=== PATIENT | female | born 1995 | race Caucasian/White ===

== ENCOUNTER → 2025-01-28 14:27 | Outpatient (CLI) | payer OTHER, SELFPAY ==
[2025-01-28 19:21] LABS: Free T4, Direct Thyroxine 0.98 ng/dL (0.78-2.19)
[2025-01-28 19:35] LABS: Thyroid Stimulating Hormone 1.05 uIU/mL (0.47-4.68)
[2025-01-28 20:01] LABS: HCG Quantitative /Beta subunit 81429 mIU/mL; Prolactin 67.9 ng/mL (3.0-18.6)
== END ==
PROVIDERS: Visit Provider Nurse Practitioner Adult Health
DX: Z34.90 Encounter for supervision of normal pregnancy, unspecified, unspecified trimester (principal); N97.0 Female infertility associated with anovulation; N91.4 Secondary oligomenorrhea
CPT/HCPCS: 84144; 84146; 84439; 84443; 84702

== ENCOUNTER → 2025-02-19 14:46 | Outpatient (CLI) | payer OTHER, SELFPAY ==
[2025-02-19 20:24] LABS: Urine N gonorrhoeae NOT DETECTED
[2025-02-19 20:26] LABS: Urine Chlamydia NOT DETECTED
== END ==
LOC: LAB 14:47
PROVIDERS: Visit Provider Obstetrics & Gynecology
DX: Z11.3 Encounter for screening for infections with a predominantly sexual mode of transmission (principal); Z3A.11 11 weeks gestation of pregnancy
CPT/HCPCS: 87491; 87591

== ENCOUNTER → 2025-03-25 16:38 | Outpatient (CLI) | payer OTHER, SELFPAY ==
[2025-03-25 17:01] LABS: Add Manual Diff / Slide Review NO; Basophils Absolute Auto 0 /uL (0-100); Basophils Percent Auto 0.4 % (0-2); Eosinophils Absolute Auto 100 /uL (0-450); Eosinophils Percent Auto 0.6 % (2-4); Hematocrit 38.6 % (36-46); Lymphocytes Absolute Auto 2500 /uL (1100-4500); Lymphocytes Percent Auto 18.8 % (25-40); Mean Corpuscular HGB Conc 33.6 % (30-36); Mean Corpuscular Hemoglobin 29.1 PG (26-34); Mean Corpuscular Volume 86.4 fL (80-100); Monocytes Absolute Auto 700 /uL (0-900); Monocytes Percent Auto 5.5 % (3-14); Neutrophils Absolute Auto 9800 /uL (1500-7000); Neutrophils Percent Auto 74.7 % (50-75); Platelet Count 236 X10^3/uL (150-400); Red Blood Cell Count 4.47 X10^6/uL (4.0-5.2); Red Cell Distribution Width 15.3 % (11.6-14.8); White Blood Cell Count 13.2 X10^3/uL (4.5-11.0)
[2025-03-25 17:24] LABS: Alanine Aminotransferase 12 IU/L (<35); Aspartate Aminotransferase 18 IU/L (14-36); BUN Creatinine Ratio 14.9 (6-22); Blood Urea Nitrogen 7 mg/dL (7-17); Estimated Glomerular Filt Rate > 60 mL/min (>60); Uric Acid 4.7 mg/dL (2.5-6.2)
[2025-03-25 17:29] LABS: Hemoglobin A1C% w Est Avg Glu 5.2 % (4.0-6.0)
== END ==
LOC: LAB 16:41
PROVIDERS: Referring Provider Obstetrics & Gynecology; Visit Provider Obstetrics & Gynecology
DX: O99.210 Obesity complicating pregnancy, unspecified trimester (principal); O09.291 Supervision of pregnancy with other poor reproductive or obstetric history, first trimester; Z3A.16 16 weeks gestation of pregnancy
CPT/HCPCS: 36415; 80055; 82105; 82565; 82677; 83036; 84450; 84460; 84520; 84550; 84702; 86336; 86787; 86803; 86850; 86900; 86901; 87389

== ENCOUNTER → 2025-05-08 11:16 | Outpatient (CLI) | payer OTHER, SELFPAY ==
--- NOTE | 2025-05-08 11:17 | DI.US.S_ITS ---
PROCEDURE: US OB >= 14 WEEKS FETUS INDICATIONS: ANATOMY OUTSIDE/PRIOR DATING DATA: Last menstrual period (LMP): November 30, 2024. LMP-based estimated date of delivery (MARK ANTHONY): September 06, 2025. The calculations are made using the LMP MARK ANTHONY of September 06, 2025. TECHNIQUE: Real-time scanning was performed of the fetus, with image documentation and biometric measurements. Endovaginal scanning: Not performed COMPARISON: [facility], , OB >= 14 WEEKS FETUS, 03/25/2025, 16:27. FINDINGS: General: A single living intrauterine gestation is present. Presentation: Breech. Placenta: Placental position is right posterior , without previa. Incidental note of mid placental venous ayala. Amniotic fluid index: 16.5 cm, normal range is 5-24 cm. Single deepest vertical pocket is 6.1 cm. heart rate: 150 beats per minute. Maternal cervical canal: 5.4 cm long. Normal lower limit is 2.5 cm. biometrics: Biparietal diameter: 5.4 cm, 22 weeks and 3 days Head circumference: 21.0 cm, 23 weeks and 1 day Abdominal circumference: 18.8 cm, 23 weeks and 4 days Femur length: 3.7 cm, 21 weeks and 6 days Clinically estimated gestational age: 22 weeks and 5 days Composite gestational age from present scan: 22 weeks and 5 days Estimated weight and percentile: 537 g which correlates with the 48th percentile for gestational age. Anatomic survey: Neuro: Ventricles are non-dilated at less than 10 mm. Cisterna magna is normal at 3-11 mm. Cerebellum is normal in size and morphology. Nuchal skin fold: Normal at less than 6 mm between 14-21 weeks gestational age. Face: Nose and lips, facial profile are normal. Spine: No evidence for spina bifida. Heart: 4-chambered heart is present, with normal ventricular outflow tracts. Diaphragm: Diaphragm is intact. Stomach: Left-sided stomach is present. Kidneys: No hydronephrosis. Mildly prominent right renal pelvis measuring 4.3 mm in AP dimension. Normal is less than 5 mm in 2nd trimester, less than 7 mm in 3rd trimester. Cord: 3-vessel cord has orthotopic insertion. Bladder: Normal in size. Extremities: All 4 extremities identified. IMPRESSION: Single living intrauterine gestation with estimated sonographic gestational age of approximately 22 weeks and 5 days. Estimated weight of approximately 537 g which correlates with the 48th percentile for gestational age. Expected interval growth has occurred. Unremarkable routine second-trimester anatomy screening survey. We strive to produce accurate, complete, and clear reports of imaging services. To assist us in improving patient care, this report was composed using standard report templates and voice recognition software. Therefore, it may contain abnormal punctuation, insertions and/or omissions. Occasional wrong-word or sound-alike substitutions may occur. Though we review the report and make efforts to correct it, we do recommend that the report be read carefully in proper context to recognize any text inaccuracies. Dictated by: Nico Pittman M.D. on 05/09/2025 at 9:24 Approved by: Nico Pittman M.D. on 05/09/2025 at 9:28
== END ==
PROVIDERS: Referring Provider Obstetrics & Gynecology; Visit Provider Obstetrics & Gynecology
DX: Z34.82 Encounter for supervision of other normal pregnancy, second trimester (principal); Z3A.22 22 weeks gestation of pregnancy
CPT/HCPCS: 76811

== ENCOUNTER → 2025-06-13 16:32 | Outpatient (CLI) | payer OTHER, SELFPAY ==
[2025-06-13 17:55] LABS: Hematocrit 37.1 % (36-46); Hemoglobin 12.7 g/dL (12.0-16.0)
[2025-06-13 18:24] LABS: GTT (PREG) 1 Hour PP 50gm Dose 173 mg/dL (76-139)
== END ==
PROVIDERS: Referring Provider Obstetrics & Gynecology; Visit Provider Obstetrics & Gynecology
DX: O26.899 Other specified pregnancy related conditions, unspecified trimester (principal); Z67.91 Unspecified blood type, Rh negative; Z13.1 Encounter for screening for diabetes mellitus; Z13.0 Encounter for screening for diseases of the blood and blood-forming organs and certain disorders involving the immune mechanism
CPT/HCPCS: 36415; 82950; 85014; 85018; 86850

== ENCOUNTER → 2025-07-24 09:12 | Outpatient (CLI) | payer OTHER, SELFPAY ==
[2025-07-24 15:09] LABS: Glucose Tol Interp,Gestational INTERPRETATION
[2025-07-24 19:13] LABS: Glucose Fasting Gestational 111 mg/dL (76-95)
[2025-07-24 19:13] LABS: Glucose 3 Hour Gest 121 mg/dL (76-140)
[2025-07-24 19:13] LABS: Glucose 2 Hour Gest 175 mg/dL (76-155)
[2025-07-24 19:13] LABS: Glucose 1 Hour Gest 201 mg/dL (76-180)
== END ==
PROVIDERS: Visit Provider Obstetrics & Gynecology
DX: O99.213 Obesity complicating pregnancy, third trimester (principal); R73.09 Other abnormal glucose
CPT/HCPCS: 82951; 82952

== ENCOUNTER → 2025-07-25 16:32 | Outpatient (CLI) | payer OTHER, SELFPAY ==
--- NOTE | 2025-07-25 16:33 | DI.US.S_ITS ---
PROCEDURE: US OB LIMITED INDICATIONS: growth US OUTSIDE/PRIOR DATING DATA: Working MARK ANTHONY is 09/06/2025 TECHNIQUE: Real-time scanning was performed of the fetus, with image documentation and biometric measurements. COMPARISON: [facility], OB >= 14 WEEKS FETUS, 05/08/2025, 12:12. FINDINGS: General: A single living intrauterine gestation is present. Presentation: Vertex. Placenta: Placental position is posterior , without previa. Amniotic fluid index: 26.1 cm, normal range is 5-24 cm. Single deepest vertical pocket is 7.2 cm. heart rate: 166 beats per minute. Maternal cervical canal: 2.8 cm long. Normal lower limit is 2.5 cm. biometrics: Biparietal diameter: 8.8 cm, 35 weeks and 5 days Head circumference: 33.6 cm , 38 weeks and 3 days Abdominal circumference: 33 cm, 37 weeks Femur length: 6.5 cm at 33 weeks and 4 days Clinically estimated gestational age: 33 weeks and 6 days Composite gestational age from present scan: 36 weeks and 1 day Estimated weight and percentile: 2861 g, 96% Other: Not applicable. IMPRESSION: Intrauterine gestation with cardiac motion in vertex presentation. Mild polyhydramnios at ARTUR of 26.1 cm. EFW at 96%, large for gestational age Dictated by: Tima Fernandez M.D. on 07/25/2025 at 19:48 Approved by: Tima Fernandez M.D. on 07/25/2025 at 19:49
== END ==
PROVIDERS: Referring Provider Obstetrics & Gynecology; Visit Provider Obstetrics & Gynecology
DX: O99.213 Obesity complicating pregnancy, third trimester (principal); O09.293 Supervision of pregnancy with other poor reproductive or obstetric history, third trimester; O40.3XX0 Polyhydramnios, third trimester, not applicable or unspecified; Z3A.33 33 weeks gestation of pregnancy
CPT/HCPCS: 76815

== ENCOUNTER → 2025-08-05 15:03 | Outpatient (CLI) | payer OTHER, SELFPAY ==
--- NOTE | 2025-08-05 17:39 | DIAB.GDA ---
Addendum entered by Leilani Lira 08/14/25 15:30: 08/14 phone call: patient needs to r/s our 08/15 visit due to scheduling NST. Also has OB visit same day. States she started 5u HS insulin last night. Overall FBG have been in the 90s. Started CGM, most numbers <140mg/dl. Likes CGM and plans to ask for Dexcom G7 rx. Also, advised her to keep BG log for OB review. If FBG >95mg/dl x2 days would recommend increase HS insulin by 2-3u. Currently 36-[address] f/u next week. Original Note: Initial Gestational Diabetes Assessment Name: Lesia Panchal Date: 08/05/25 Time: 3-4p Dx: Gestational Diabetes Provider: Morales MARK ANTHONY: 09/06/25 Weeks: 35 Lesia presents for initial GDM visit virtually using [facility]. No previous PMH of GDM. Endorses FH of DM with father and parternal grandfather. Recent US with LGA at 96%ile and ARTUR 26.1cm mild polyhydramnios. Given FBG, likely would benefit from insulin therapy HS. States she would like to avoid medications if possible, but would be open to this if necessary. This RD thinks it likely is necessary given >100mg/dl frequency. Lesia would like to work more on lifestyle over the next two days and see if FBG will come down. RD has messaged this to OB. Reports she does not eat pork or any seafood besides fish. Today she wants to know how Dm can impact her and baby, T2Dm risk, nutrition recs and BG goals. 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 Diet Recall: 745a: eggs, veg, cheese, turkey or chicken or veggie sausage +/- sourdough toast 10: beef stick, cheese, almonds and 1/2 apple 12p: school lunch, vegetarian, salad, beans, brown rice, fruit 430p: veggies, tofu, brown rice albanian noodles 930p: chicken or turkey or beans/cheese 80oz water tea Anthropometrics: Ht: 62 Wt: 233# 07/2025 Prepregnancy wt: 198# Physical Activity: 10-15 min walks after meal daily Self-Monitoring Blood Glucose: Checking FBG and 2-2.5 hours pc. Some postprandial readings may be lower than actual 2h due to late testing. FBG all elevated and 1/7 elevated breakfast, 2/5 elevated lunch, and 2/6 elevated dinner Date Pre Post Pre Post Pre Post notes 07/30 96 102 102 135 07/31 117 139 127 119 08/01 119 108 109 116 08/02 114 100 114 90 08/03 106 107 129 142 08/04 88 122 08/05 93 112 Diabetes Medications: none Pertinent Labs: Nutrition Rx: Carbohydrates: Meal: 30-45-g lunch and dinner; 30g breakfast Snack: 15-30g Nutrition Diagnosis: Altered nutrition related lab value r/t GDM dx aeb recent OGTT Predicted excessive CHO r/t nutrition knowledge deficit and new dx GDM aeb diet recall at lunch Intervention: This participant was very receptive. Provided appropriate educational handouts. Discussed the following topics: GDM pathophysiology and impact of hyperglycemia on mom and baby Risk for T2DM for mom and baby in the future Ways to reduce risk T2DM Plate Method, meal timing, carb counting, pairing macronutrients and spreading out CHO for better BG management Blood glucose goals (FBG: <95 and 1 hour <140 mg/dL or 2 hour <120mg/dl ); importance of checking 4x per day (FBG and pc) Impact of macronutrients on blood glucose Recommended servings for carbohydrates at meals and snacks Brainstormed appropriate meal/snack ideas based on her food preferences Role of physical activity and following provider guidelines for safety Potential for medication management given 35 weeks and recent BG. Goals: Limit CHO to 1c at lunch and dinner Try to be active daily after meals 2x per day Follow-up: IMAN BUCKNER follow-up via messaging or phone by Monday and virtual f/u in one week. Interested in CGM. Will leave sensor with OB office. Leilani Lira RDN, SITA Certified Diabetes Care and Product Engineering Manager T: [phone] F: [phone] [email or web address] Thank you for this referral
== END ==
LOC: DIET 15:04
PROVIDERS: Referring Provider Obstetrics & Gynecology
DX: O24.419 Gestational diabetes mellitus in pregnancy, unspecified control (principal); Z3A.35 35 weeks gestation of pregnancy; Z83.3 Family history of diabetes mellitus; Z71.3 Dietary counseling and surveillance
CPT/HCPCS: 97802

== ENCOUNTER → 2025-08-08 11:52 | Outpatient (CLI) | payer OTHER, SELFPAY ==
[2025-08-09 11:11] LABS: Strep Grp B PCR NEG for Grp B Strep
== END ==
PROVIDERS: Visit Provider Obstetrics & Gynecology
DX: Z34.83 Encounter for supervision of other normal pregnancy, third trimester (principal); Z3A.35 35 weeks gestation of pregnancy
CPT/HCPCS: 87653

== ENCOUNTER 2025-08-15 15:00 | Outpatient (CLI) | payer OTHER, SELFPAY | END 2025-08-15 15:41 | disposition home or self-care (01) | LOC: LABOR 15:14 → OB 08-18 12:29 | PROVIDERS: Referring Provider Obstetrics & Gynecology; Visit Provider Obstetrics & Gynecology | DX: O24.414 Gestational diabetes mellitus in pregnancy, insulin controlled (principal); Z3A.36 36 weeks gestation of pregnancy; Z36.9 Encounter for antenatal screening, unspecified | CPT/HCPCS: 59025; G0378; G0379 ==

== ENCOUNTER → 2025-08-19 16:31 | Outpatient (CLI) | payer OTHER, SELFPAY ==
--- NOTE | 2025-08-19 16:33 | DIAB.GDFU ---
Follow-up Gestational Diabetes Assessment Name: Lesia Panchal Date: 08/19/25 Time: 430-515p Dx: Gestational Diabetes Provider: Morales MARK ANTHONY: 09/06/25 Weeks: 37 Lesia presents for GDM visit virtually using [facility]. No previous PMH of GDM. Endorses FH of DM with father and paternal grandfather. Plan for induction next week. Growth scan on Monday. Previous US with LGA at 96%ile and ARTUR 26.1cm mild polyhydramnios. FBG continues to be elevated. HS insulin up to 7u. Likely would benefit from 10u. We discussed usual titration schedule but encouraged her to chat with OB as well. Liking CGM, wants Rx. RD messaged workgroup. Has been working on lower CHo options. Making healthier choices for craving foods. States she is interested in but had difficulty with last babydue to limited resources during covid and h/o breast reduction. Resources provided. 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 Using CGM to extract data below with a goal of 65-140mg/dl. 4/7 elevated FBG, 2/7 elevated pc breakfast, 2/7 elevated pc lunch, and 4/6 elevated pc dinner. Excessive elevations at dinner and with FBG. Date Pre Post Pre Post Pre Post notes 08/13 94 144 132 133 08/14 94 126 143 124 08/15 94 128 127 177 08/16 105 131 120 147 08/17 98 148 125 168 08/18 96 137 155 150 08/19 108 123 116 Diabetes Medications: 7u NPH Pertinent Labs: Screen 173mg/dl OGT: 111, 201, 175 Nutrition Rx: Carbohydrates: Meal: 30-45-g lunch and dinner; 30g breakfast Snack: 15-30g Nutrition Diagnosis: Altered nutrition related lab value r/t GDM dx aeb recent OGTT Predicted excessive CHO r/t nutrition knowledge deficit and new dx GDM aeb elevated pc readings - improved/in progress Intervention: This participant was very receptive. Provided appropriate educational handouts. Discussed the following topics: Recommended servings for carbohydrates at meals and snacks Brainstormed appropriate meal/snack ideas based on her food preferences Role of physical activity and following provider guidelines for safety Review of usual titration schedule to improve FBG Benefits, resources, and nutrition for recommendations for nutrition and physical activity recommendations for T2DM risk reduction? - OGTT at 6-12 weeks - Checking blood sugars twice per week (goal: fasting <100 mg/dL and 2 hour pc <140 mg/dL) until 6 week check-up - HgA1c q 1-3 years. Goals: Limit CHO to 1c at lunch and dinner- met Try to be active daily after meals 2x per day- met Follow titration rec for FBG, 2-3u q 2-3 days if FBG >95mg/dl, unless provider says otherwise- new Reach out to prn- new Be conscious of dinner CHO portions- new Follow-up: IMAN BUCKNER follow-up prn Leilani Lira RDN, SITA Certified Diabetes Care and Finished Cigar Maker T: [phone] F: [phone] [email or web address] Thank you for this referral
== END ==
LOC: DIET 16:31
PROVIDERS: Referring Provider Obstetrics & Gynecology
DX: O24.414 Gestational diabetes mellitus in pregnancy, insulin controlled (principal); Z3A.37 37 weeks gestation of pregnancy; Z71.3 Dietary counseling and surveillance; Z83.3 Family history of diabetes mellitus
CPT/HCPCS: 97803

== ENCOUNTER → 2025-08-22 08:39 | Outpatient (CLI) | payer OTHER, SELFPAY ==
--- NOTE | 2025-08-22 08:41 | DI.US.S_ITS ---
PROCEDURE: US OB FOLLOW UP INDICATIONS: growth check OUTSIDE/PRIOR DATING DATA: Last menstrual period (LMP): 11/30/2024. LMP-based estimated date of delivery (MARK ANTHONY): 09/06/2025. TECHNIQUE: Real-time scanning was performed of the fetus, with image documentation and biometric measurements. Endovaginal scanning: Not done COMPARISON: [facility], OB LIMITED, 07/25/2025, 17:07. [facility], OB >= 14 WEEKS FETUS, 05/08/2025, 12:12. [facility] OB >= 14 WEEKS FETUS, 03/25/2025, 16:27. [facility] OB <= 14 WEEKS FETUS, 02/19/2025, 15:31. FINDINGS: General: A single living intrauterine gestation is present. Presentation: Vertex. Placenta: Placental position is right posterior fundal, without previa. Amniotic fluid index: 17 cm, normal range is 5-24 cm. Single deepest vertical pocket is 8.5 cm. heart rate: 152 beats per minute. Maternal cervical canal: Not examined biometrics: Biparietal diameter: 9.6 cm equals 39 weeks 1 day Head circumference: 34.7 cm equals 40 weeks 2 days Abdominal circumference: 37.2 cm equals 21 weeks 1 day Femur length: 7.2 cm equals 36 weeks 3 days Clinically estimated gestational age: 37 weeks 6 days Composite gestational age from present scan: 39 weeks 3 days Estimated weight and percentile: 3940 g, 96 percentile Other: A probable nuchal cord can be seen. IMPRESSION: Large fetus common 96 percentile. This amended weight is 3840 g. Please correlate with development of macrosomia. A probable nuchal cord can be seen. Note: Concordant preliminary findings given by the ham clerk upon the completion of the examination to Dr. Barclay at 9:20 a.m. on August 22, 2025. We strive to produce accurate, complete, and clear reports of imaging services. To assist us in improving patient care, this report was composed using standard report templates and voice recognition software. Therefore, it may contain abnormal punctuation, insertions and/or omissions. Occasional wrong-word or sound-alike substitutions may occur. Though we review the report and make efforts to correct it, we do recommend that the report be read carefully in proper context to recognize any text inaccuracies. Dictated by: Mickey Vásquez M.D. on 08/22/2025 at 9:09 Approved by: Mickey Vásquez M.D. on 08/22/2025 at 9:11
== END ==
PROVIDERS: Referring Provider Obstetrics & Gynecology; Visit Provider Obstetrics & Gynecology
DX: Z36.2 Encounter for other antenatal screening follow-up (principal); Z3A.37 37 weeks gestation of pregnancy
CPT/HCPCS: 76816

== ENCOUNTER 2025-08-24 18:51 | Inpatient (IN) | payer OTHER, SELFPAY ==
[2025-08-24 19:54] VITALS: BP 109/65
[2025-08-24 19:59] LABS: Add Manual Diff / Slide Review NO; Hematocrit 36.3 % (36-46); Hemoglobin 12.9 g/dL (12.0-16.0); Lymphocytes Absolute Auto 2100 /uL (1100-4500); Mean Corpuscular HGB Conc 35.4 % (30-36); Mean Corpuscular Hemoglobin 31.8 PG (26-34); Mean Corpuscular Volume 89.7 fL (80-100); Platelet Count 207 X10^3/uL (150-400)
[2025-08-24 20:19] LABS: Alanine Aminotransferase 17 IU/L (<35); Albumin 3.8 g/dL (3.5-5.0); Albumin Globulin Ratio 1.2 (1.0-2.8); Blood Urea Nitrogen 9 mg/dL (7-17); Calcium 9.4 mg/dL (8.4-10.2); Carbon Dioxide 18 mmol/L (22-32); Chloride 107 mmol/L (98-107); Estimated Glomerular Filt Rate > 60 mL/min (>60); Globulin 3.1 g/dL (1.7-4.1); Glucose 129 mg/dL (70-99); HEMOLYSIS 88 (0-50); Sodium 135 mmol/L (137-145); Total Protein 6.9 g/dL (6.3-8.2); Uric Acid 5.6 mg/dL (2.5-6.2)
[2025-08-24 20:21] LABS: Alkaline Phosphatase 143 U/L (38-126); Potassium 3.8 mmol/L (3.4-5.1)
[2025-08-24 20:47] LABS: Protein (Total) Urine Random 12 mg/dL (0-12); Protein Creatinine Ratio Urine 0.27 GRAM/24H
[2025-08-24] MEDS: INSULIN NPH 100 UNIT/ML 10ML VIAL SUBCUT (21:27)
--- NOTE | 2025-08-25 07:52 | PM.OBHP.IH.1 ---
OB HPI Date/Time Date of admission: 08/25/25 Date Patient Seen: 08/25/25 Time Patient Seen: 07:52 History of Present Condition Chief complaint: NST MARK ANTHONY Calculator Estimated Delivery Date Method Current WG Current Estimate 09/06/25 Conception 38w 2d Other Estimates 09/01/25 LMP (Certain) 39w 0d 09/04/25 Ultrasound #1 38w 4d Estimated Gestational Age (weeks): 38w2d : 2 Para: 1 care: good care Ultrasounds: normal mid trimester US Abnormal ultrasound findings: macrosomia- EFW- 96% on 08/23/25- 3840gm Obstetrical complications: gestational diabetes Narrative: Patient is a 29yo @ 38w2d presented overnight for scheduled induction of labor for GDMA2 on insulin. Patient has no complaints. denies any contractions, LOF, VB and reports good movement. is complicated by GDMA2-- currently on insulin NPH5U qhs, Rh negative- received Rhogam t 28wks, history of PreE in previous . Indications Indication for induction OB: gestational diabetes Preadmission Labs Last OB Lab Results: Blood Type O Negative 08/24/25, 19:45 Antibody Screen Negative 08/24/25, 19:45 Hct, (36-46) 36.3 % 08/24/25, 19:45 Hgb, (12.0-16.0) 12.9 g/dL 08/24/25, 19:45 Hep Bs Antigen, (NEGATIVE) Negative s/c 03/25/25, 16:47 Hepatitis C Antibody, (NEGATIVE) Negative s/c 03/25/25, 16:47 Rubella Antibody, (>15) 14.6 IU/mL L 03/25/25, 16:47 VZV IgG Antibody, (Non Reactive) Non reactive 03/25/25, 16:47 Glucose 1 Hr 50 gm, (76-139) 173 mg/dL H 06/13/25, 17:36 Hemoglobin A1c, (4.0-6.0) 5.2 % 03/25/25, 16:47 Group B Strep (PCR) Neg for grp b strep 08/08/25, 12:00 Prior (ies) Past Pregnancies Del. Date GA/Weeks Labor Lgth Wt Sex Route Outcome Anesthesia Place Delv Breastfeed Preg Comp Name 12/10/19 37+ 28 7 lb 6 oz Female vaginal live - full term epidural AMAN Jang 2-3 months, low supply, stress Chaparro Hx # Term Pregnancies: 1 Number of Living Children: 1 [facility] Surgical History (Updated 02/19/25 @ 22:38 by Alexa Bryant MD) History of bilateral breast reduction surgery Family History (Updated 02/07/25 @ 15:39 by Pratima Fong RN) Grandfather Non Hodgkin's lymphoma Mother Thyroid cancer Brother Epilepsy Social History marital status: number of children: 1 household members: spouse and children lives independently: Yes caregiver/support person: Yes housing: house pets and animals: Yes (cats, dog) education level: college occupational status: employed 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, 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 ) bernardo/sikhism: Seventh Day Hinduism special brenardo needs: Yes (Does not eat pork or shellfish) travel history: recent seatbelt use: always water heater temp set < 120 deg: Yes working smoke detector in home: Yes fire extinguisher in home: Yes carbon monox detector in home: Yes firearms in home: No do you feel safe at home: Yes Smoking Status: Never smoker second hand exposure: No alcohol intake: never substance use type: does not use during the past year weight has: decreased > 10 lbs well-balanced diet: about half the time daily servings fruits/ve or more times/day caffeine: No Type(s) of exercise: walking, swimming and other Meds Home Medications and Allergies Home Medications ?Medication ?Instructions ?Recorded ?Confirmed ?Type vitamin-ferrous sulfate 1 tab PO 02/07/25 08/15/25 History 27 mg iron-folic acid 0.8 mg tablet breast pump #1 ea 07/25/25 08/15/25 Rx blood sugar diagnostic (Blood #120 ea 07/28/25 08/15/25 Rx Glucose Test strips) blood-glucose meter (Blood Glucose #1 ea 07/28/25 08/15/25 Rx Monitoring kit) lancets #120 ea 07/28/25 08/15/25 Rx insulin NPH isoph U-100 human 100 5 unit (0.05 mL) SUBCUT BEDTIME 08/08/25 08/25/25 Rx unit/mL (3 mL) subcutaneous pen #15 mL (Humulin N NPH U-100 Insulin KwikPen) blood-glucose sensor (Dexcom G7 #8 ea 08/20/25 Rx Sensor device) Allergies Allergy/AdvReac Type Severity Reaction Status Date / Time No Known Drug Allergies Allergy Unverified 08/25/25 04:13 OB Exam Vital signs Blood Pressure: 126/67 Narrative Exam Narrative: General- AAO x 3, NAD abdomen- gravid geovani's- 8.5lbs exame deferred BSUS on admit- vertex confirmed Objective Labs 08/24/25 19:45 08/24/25 19:45 Labs: Laboratory Results - last 24 hr 08/24/25 08/24/25 08/24/25 19:14 19:45 20:15 WBC TNP 11.9 H RBC TNP 4.05 Hgb TNP 12.9 Hct TNP 36.3 MCV TNP 89.7 MCH TNP 31.8 MCHC TNP 35.4 RDW TNP 13.5 Plt Count TNP 207 Neut % (Auto) Not Reportable 78.2 H Lymph % (Auto) Not Reportable 17.4 L [place] % (Auto) Not Reportable 3.9 Eos % (Auto) Not Reportable 0.3 L Baso % (Auto) Not Reportable 0.2 Neut # (Auto) TNP 9300 H Lymph # (Auto) TNP 2100 [place] # (Auto) TNP 500 Eos # (Auto) TNP 0 Baso # (Auto) TNP 0 Sodium 135 L Potassium 3.8 Chloride 107 Carbon Dioxide 18 L BUN 9 Creatinine 0.39 L Estimated GFR > 60 BUN/Creatinine Ratio 23.1 H Glucose 129 H POC Whole Bld Glucose Uric Acid 5.6 Calcium 9.4 Total Bilirubin 0.7 AST 33 ALT 17 Alkaline Phosphatase 143 H Total Protein 6.9 Albumin 3.8 Globulin 3.1 Albumin/Globulin Ratio 1.2 U Random Total Protein 12 Urine Creatinine 43.78 Protein/Creatinin Ratio 0.27 Blood Type O Negative Antibody Screen Negative 08/25/25 08/25/25 08/25/25 00:52 05:07 05:31 WBC RBC Hgb Hct MCV MCH MCHC RDW Plt Count Neut % (Auto) Lymph % (Auto) [place] % (Auto) Eos % (Auto) Baso % (Auto) Neut # (Auto) Lymph # (Auto) [place] # (Auto) Eos # (Auto) Baso # (Auto) Sodium Potassium Chloride Carbon Dioxide BUN Creatinine Estimated GFR BUN/Creatinine Ratio Glucose POC Whole Bld Glucose 104 H 89 97 Uric Acid Calcium Total Bilirubin AST ALT Alkaline Phosphatase Total Protein Albumin Globulin Albumin/Globulin Ratio U Random Total Protein Urine Creatinine Protein/Creatinin Ratio Blood Type Antibody Screen Assessment and Plan Assessment and Plan Assessment and Plan narrative: Patient is a 29yo @ 38w2d presents for scheduled induction of labor for gestational DM on insulin. 1. Scheduled induction of labor- admit to L&D - CEFM, IVF, regular diet - cervix in clinic- // - start misoprostol for cervical ripening-- currently on 3rd dose of 50mcg PO q 4 hours - BSUS confirmed vertex presentation - anesthesia per request - GBS negative - anticipate 2. GDMA2 on insulin - will monitor glucose in labor and ISS ordered - recent EFW on 08/23/25- 3840gm, 96% - reviewed risk of shoulder dystocia -- we discussed that shoulder dystocia is unpredictable but with GDM there is increased risk due to fat deposition in the shoulders/abdomen. considering partner size i suspect the size is more constitutional then due to DM as her glucose has been fairly well controlled with the insulin management. - we discussed that we will be prepared for a possible shoulder dystocia at time of delivery with additional nurses in room for assistance if maneuvers are indicated. we will avoid an instrumented delivery and monitor labor curve. 3. Rh negative - Rhogam given at 28wks - will check infant blood type at delivery and give rhogam if indicated dispo- continue induction of labor, anticipate Time-Based Coding :: [TOTAL MINUTES] spent with patient and on the chart (including review of chart, obtaining history, exam, reviewing outside data, placing orders, documenting exam and treatment plan, and counseling patient) on [DATE].
[2025-08-25 08:02] VITALS: BP 126/67
[2025-08-25 08:23] LABS: Add Manual Diff / Slide Review NO
--- NOTE | 2025-08-25 17:34 | PM.AN.REGBLK ---
[facility] <Reji Carlisle, DO - Last Filed: 08/25/25 17:37> Pre-procedure Procedure: Continuous Lumbar Epidural for L&D Attending OB provider: Estela Nielsen PMH/ROS narrative: term IOL for GDMA2, insulin. No other medical or obstetric complications. BMI 39 ASA Class: III (GDMA2, BMI) Labs: Hct 36.3 % (36-46) 08/24/25 19:45 Plt Count 207 X10^3/uL (150-400) 08/24/25 19:45 Medications: Current Medications Generic Name Dose Route Start Last Admin Trade Name Freq PRN Reason Stop Dose Admin Carboprost Tromethamine 250 mcg 08/24/25 19:18 Carboprost 250 Mcg/Ml Ampul IM Q90M PRN Bleeding Tranexamic Acid 1,000 mg/ 100 mls @ 600 mls/hr 08/24/25 19:18 Sodium Chloride IV NOW PRN Bleeding Oxytocin/Lactated Ringer's 30 unit in 500 mls @ 200 mls/hr 08/24/25 19:18 Oxytocin Premix IV CONT PRN Bleeding Protocol Lidocaine HCl 20 ml 08/24/25 19:18 Lidocaine 1% 20 Ml INJ INTRA-OP PRN Post Delivery Methylergonovine Maleate 0.2 mg 08/24/25 19:18 Methylergonovine 0.2 Mg/Ml Vial IM NOW PRN Bleeding Methylergonovine Maleate 0.2 mg 08/24/25 19:18 Methylergonovine 0.2 Mg Tablet PO Q6HR PRN Heavy Bleeding Mineral Oil 30 ml 08/24/25 19:18 Mineral Oil 30 Ml Udc TOP PRN PRN Version Misoprostol 50 mcg 08/24/25 19:18 08/25/25 13:26 Misoprostol 25 Mcg Tablet PO 50 mcg Q4H PRN Administration cervical ripening Misoprostol 400 mcg 08/24/25 19:18 Misoprostol 200 Mcg Tablet SL NOW PRN Bleeding Misoprostol 800 mcg 08/24/25 19:18 Misoprostol 200 Mcg Tablet MN NOW PRN Bleeding Naloxone HCl 0.2 mg 08/24/25 19:18 Naloxone 0.4 Mg/Ml Vial IV Q2MIN PRN Opiate Reversal Oxytocin 10 unit 08/24/25 19:18 Oxytocin 10 Unit/Ml Vial IM NOW PRN Bleeding Allergies: Allergies Allergy/AdvReac Type Severity Reaction Status Date / Time No Known Drug Allergies Allergy Unverified 08/25/25 04:13 Procedure Insertion date: 08/25/25 Insertion time: 17:23 Prep/Local: betadine x3 and 1% lidocaine Interspace: L34 Patient position: sitting Needle: 18 gauge Hustead (CSE: 27g Pencan through Hustead. Clear CSF, 1mL 0.25% bupiv MPF. ) Loss of resistance with: saline ISABELLE at (cm): 7 Catheter placed at SKIN (cm): 13 Catheter in SPACE (cm): 6 Insertion: No CSF, No Blood, No Paresthesia with insertion, No Paresthesia with injection and No Test dose reaction Initial Medications TEST DOSE time: : TEST DOSE: 1.5% lidocaine with epinephrine 1:200k (mL): 3 BOLUS DOSE time: 17:30 BOLUS DOSE (mL): 4 BOLUS DOSE med: other (infusate) Infusion INFUSION: 0.125% bupivacaine and with fentanyl 2 mcg/mL Initial rate (mL/hr): 8 Post-procedure Anesthesia date START: 08/25/25 Anesthesia time START: 17:10 <Kailyn Urena DO - Last Filed: 08/25/25 23:28> Post-procedure Anesthesia date END: 08/25/25 Anesthesia time END: 23:10 Post-procedure Anesthesia Assessment: Yes CV function: HR/BP stable, Yes Resp function: RR/sat/airway adequate, Yes Post-op hydration adequate, Yes Pain control adequate, Yes Nausea & vomiting absent, Yes Temperature > 36 C, Yes Mental status appropriate and No Anesthesia complications
--- NOTE | 2025-08-25 18:04 | PM.OBPNLAB ---
Date/Time Date Patient Seen: 08/25/25 Time Patient Seen: 18:04 Pain Control Pain control: epidural Comments: Patient resting comfortably with epidural Pelvic Exam Dilation (cm): 1 Effacement (%): 80 station: -1 Amniotic membrane status: Ruptured Contractions Contractions on admission: regular Monitor mode: External Contraction pattern: Regular Contraction phase: Resting Contraction intensity: Moderate Status status: Category l Heart Rate Baseline: 140 Monitor Accelerations: Present Monitor Decelerations: Absent Monitor Variability: Moderate Assessment and Plan Assessment: induction ongoing Plan: continuous present management
[2025-08-25] MEDS: OXYTOCIN PREMIX 30 UNIT/500 ML PLAST..BAG IV (19:27)
--- NOTE | 2025-08-25 23:37 | PM.OBPRVD ---
Events: Gestational Diabetes Labor & Delivery Delivery date: 08/25/25 Delivery Time: 23:10 Intrapartal Events: None Cervical ripening method: per misoprostal protocol Induction method: per pitocin protocol Delivery monitor: external FHT Route of delivery: L&D Laceration Description: None Quantitative Blood Loss: 200 Anesthesia Type: Epidural Complications: none Narrative: Priti is a 29yo @ 38wks persented to L&D for scheduled induction of labor due to gestational DM on insulin. she was given misoprostol for cervical ripening. She SROMed and pitocin started. She received an epidural and progressed to complete dilation and uncomplicated . placenta delivered spontaneously intact and bleeding managed with fundal massage and pitocin. Patient and baby healthy in room recovering. viable male infant, apgars- 9/9 Plan for aftercare: Routine care
[2025-08-26] MEDS: DERMOPLAST SPRAY 20% 60 ML 1 SPRAY TOP (02:05)
[2025-08-26] MEDS: IBUPROFEN 600 MG TABLET PO ×2 (02:05→09:55)
[2025-08-26] MEDS: LANOLIN OINT 7 GM 1 APPLIC TOP (02:06)
[2025-08-26] MEDS: ACETAMINOPHEN 325 MG TABLET 650 MG PO ×2 (05:08→11:27)
[2025-08-26 07:38] LABS: Add Manual Diff / Slide Review NO; Hematocrit 35.9 % (36-46); Hemoglobin 12.2 g/dL (12.0-16.0); Lymphocytes Absolute Auto 2100 /uL (1100-4500); Mean Corpuscular HGB Conc 34.1 % (30-36); Mean Corpuscular Hemoglobin 30.7 PG (26-34); Mean Corpuscular Volume 90.2 fL (80-100); Platelet Count 195 X10^3/uL (150-400)
[2025-08-26 07:54] LABS: Alanine Aminotransferase 15 IU/L (<35); Albumin 3.4 g/dL (3.5-5.0); Albumin Globulin Ratio 1.3 (1.0-2.8); Alkaline Phosphatase 114 U/L (38-126); Blood Urea Nitrogen 7 mg/dL (7-17); Calcium 9.7 mg/dL (8.4-10.2); Carbon Dioxide 22 mmol/L (22-32); Chloride 106 mmol/L (98-107); Estimated Glomerular Filt Rate > 60 mL/min (>60); Globulin 2.7 g/dL (1.7-4.1); Glucose 105 mg/dL (70-99); HEMOLYSIS < 15 (0-50); Potassium 4.1 mmol/L (3.4-5.1); Sodium 135 mmol/L (137-145); Total Protein 6.1 g/dL (6.3-8.2)
--- NOTE | 2025-08-26 13:39 | P.DS_ITS ---
Discharge Providers Provider Date of admission: 08/24/25 18:51 Discharge Date: 08/26/25 Primary care physician: Doctor Gretchen MD Consults: 08/24/25 19:18 Consult to Anesthesiology Urgent Comment: Consulting Provider: Anesthesiologist Reason for consultation: Epidural Has provider been notified: No 08/25/25 23:35 Consult to Toddler Lead Teacher Routine Comment: 08/26/25 01:29 Consult to Toddler Lead Teacher Routine Comment: Discharge provider: Estela Nielsen DO Summary Hospital Course Date Patient Seen: 09/25/25 Time Patient Seen: 12:00 Diagnoses: postpartu, , single live , gestational diabetes on insulin Hospital Course: Patient is a 29yo @ 38wks presented to L&D for scheduled induction of labor. received misoprostol for cervical ripneing and quickly progressed to an uncomplicated and uncomplicated course. discharged home on day 1 Peripartum Data Infant Delivery Method: Natural Vaginal Laceration Description: None Procedures: , epidural complications: none Status at Discharge Cognitive/behavioral status at discharge: oriented Functional status at discharge: independent ambulation Overall status at discharge: patient is back to baseline Time Spent with Patient Time attestation: Total time spent providing and/or coordinating discharge services: Time spent: Less than 30 minutes Specific discharge activities: pelvic rest x 6 weeks Objective Labs 08/26/25 07:30 08/26/25 07:30 Labs: Laboratory Results - last 24 hr 08/25/25 08/25/25 08/25/25 14:35 19:01 20:59 WBC RBC Hgb Hct MCV MCH MCHC RDW Plt Count Neut % (Auto) Lymph % (Auto) [place] % (Auto) Eos % (Auto) Baso % (Auto) Neut # (Auto) Lymph # (Auto) [place] # (Auto) Eos # (Auto) Baso # (Auto) Sodium Potassium Chloride Carbon Dioxide BUN Creatinine Estimated GFR BUN/Creatinine Ratio Glucose POC Whole Bld Glucose 109 H 85 106 H Calcium Total Bilirubin AST ALT Alkaline Phosphatase Total Protein Albumin Globulin Albumin/Globulin Ratio 08/26/25 07:30 WBC 15.8 H RBC 3.98 L Hgb 12.2 Hct 35.9 L MCV 90.2 MCH 30.7 MCHC 34.1 RDW 13.5 Plt Count 195 Neut % (Auto) 80.7 H Lymph % (Auto) 13.3 L [place] % (Auto) 5.4 Eos % (Auto) 0.2 L Baso % (Auto) 0.4 Neut # (Auto) 85685 H Lymph # (Auto) 2100 [place] # (Auto) 900 Eos # (Auto) 0 Baso # (Auto) 100 Sodium 135 L Potassium 4.1 Chloride 106 Carbon Dioxide 22 BUN 7 Creatinine 0.48 L Estimated GFR > 60 BUN/Creatinine Ratio 14.6 Glucose 105 H POC Whole Bld Glucose Calcium 9.7 Total Bilirubin 0.7 AST 26 ALT 15 Alkaline Phosphatase 114 Total Protein 6.1 L Albumin 3.4 L Globulin 2.7 Albumin/Globulin Ratio 1.3 Exam Vital Signs (past 8 hours): BPs normotensive Narrative Exam Narrative: General- AAO x 3, NAD lungs- unlabored respirations uterus- firm below umbilicus, nontener lochia- minimal LE- trace edema Discharge Plan Discharge Plan Patient Disposition: Home Discharge orders & Medications Prescriptions: Continued vit-ferrous sulfat-FA 27 mg iron- 0.8 mg tablet 1 tab PO DAILY Discontinued (DME) Dexcom G7 Sensor Device See Rx Instructions .MEDSUPPLY Qty: 8 3RF Rx Instructions: use to check blood sugars and change out every 10 days Humulin N NPH Insulin KwikPen 100 unit/mL (3 mL) insulin pen 5 unit SUBCUT BEDTIME Qty: 15 3RF (DME) breast pump Device See Rx Instructions .ROUTE .MEDSUPPLY Qty: 1 0RF Rx Instructions: As directed (DME) Blood Glucose Test Strip See Rx Instructions .ROUTE .MEDSUPPLY Qty: 120 3RF Rx Instructions: Testing blood sugar 4x daily fasting and 2 hours after each meal (DME) lancets Misc See Rx Instructions .ROUTE .MEDSUPPLY Qty: 120 3RF Rx Instructions: Testing blood sugar 4x daily Fasting and 2 hours after each meal (DME) blood-glucose meter [Blood Glucose Monitoring] Kit See Rx Instructions .ROUTE .MEDSUPPLY Qty: 1 0RF Rx Instructions: Testing blood surgar 4x daily Fasting and 2 hours after each meal No Action Phexxi 1.8-1-0.4 % gel 1 appful vaginal PER PKG DIR Qty: 60 4RF Rx Instructions: insert 1 applicatorful vaginally within 1 hour before each act of vaginal intercourse Follow up/Referrals: Estela Nielsen DO [Physician, Gynecology] Referral Note: Please follow up with Dr. Nielsen for your 6 week visit on October 07 @ 10:00am Doctor Godinez MD [Primary Care Provider, Medical] Visit Report/Discharge Packet Stand Alone Forms: Discharge: Care, Patient Portal/API, Stroke Signs & Symptoms Discharge Data Primary Care Provider: Doctor Gretchen
[2025-08-26] MEDS: RHO(D) IMMUNE GLOBULIN 1,500 UNIT SYRINGE 1500 UNIT IM (16:30)
== END 2025-08-26 17:05 | disposition home or self-care (01) | DRG 807 ==
PROVIDERS: Admitting Provider Obstetrics & Gynecology; Referring Provider Obstetrics & Gynecology; Visit Provider Obstetrics & Gynecology
DX: O24.424 Gestational diabetes mellitus in childbirth, insulin controlled (principal); Z37.0 Single live birth; Z3A.38 38 weeks gestation of pregnancy; Z67.41 Type O blood, Rh negative; Z87.59 Personal history of other complications of pregnancy, childbirth and the puerperium
CPT/HCPCS: 36415; 59050; 59200; 59400; 80053; 82962; 84550; 85007; 85025; 86850; 86900; 86901; G0379; J2590; J2790

== ENCOUNTER → 2025-09-26 08:30 | Outpatient (CLI) | payer OTHER, SELFPAY ==
[2025-09-26 18:44] LABS: Glucose Tol Interpretation INTERPRETATION
[2025-09-26 18:56] LABS: Glucose 2 Hour 115 mg/dL (70-140)
[2025-09-26 19:00] LABS: Glucose 1 Hour 171 mg/dL (70-170)
== END ==
PROVIDERS: Visit Provider Obstetrics & Gynecology
DX: O24.414 Gestational diabetes mellitus in pregnancy, insulin controlled (principal)
CPT/HCPCS: 82951; 82952